=== PATIENT | male | born 1985 | race Two or more races ===

== ENCOUNTER 2017-08-20 10:23 | Emergency (ER) | payer OTHER ==
[~2017-08-20] VITALS: Ht 167.6 cm; Wt 68.0 kg
--- NOTE | 2017-08-20 10:38 | Emergency Room Report ---
History of Present Illness General Chief Complaint: Medical Clearance Source: Patient Present Illness HPI He cut his L hand on broken glass earlier today while sifting through trash. Some minimal bleeding. Initially states unknown tetanus. Denies pain. No somatic complaints. R handed. Allergies: Coded Allergies: No Known Allergies (Unverified , 08/20/17) Patient History Past Medical History: see triage record Social History: Reports: alcohol use Social History Narrative in custody Reviewed Nursing Documentation: PMH: Agreed, PSxH: Agreed Nursing Documentation-PMH Past Medical History: No History, Except For Hx Hypertension: Yes Review of Systems All Other Systems: negative except mentioned in HPI Physical Exam Vital Signs Date Time Temp Pulse Resp B/P (MAP) Pulse Ox O2 Delivery O2 Flow Rate FiO2 08/20/17 10:14 98.1 120 16 143/102 99 Room Air Sp02 EP Interpretation: reviewed, normal General Appearance: well appearing, no apparent distress Head: normocephalic, atraumatic Eyes: bilateral eye PERRL, bilateral eye Scleral Injection ENT: hearing grossly normal, normal voice Neck: full range of motion, supple Respiratory: lungs clear, no respiratory distress, speaking full sentences Cardiovascular #1: regular rate, rhythm Cardiovascular #2: 2+ radial (L) - cap fill normal Gastrointestinal: normal inspection, scaphoid Musculoskeletal: back normal, digits/nails normal, gait/station normal, normal range of motion, other - tendon not involved Neurologic: alert, motor strength/tone normal, sensory intact, normal gait Psychiatric: mood/affect normal Skin: laceration - superficial base of L thumb, < 1 cm Medical Decision Making Diagnostic Impression: Primary Impression: Superficial laceration left thumb ER Course Patient presents with superficial laceration L thumb. No sutures indicated. No foreign body present. Patient refused tetanus. Patient stable for outpatient observation and treatment. Last Vital Signs Date Time Temp Pulse Resp B/P (MAP) Pulse Ox O2 Delivery O2 Flow Rate FiO2 08/20/17 11:13 98.1 101 16 144/99 99 Room Air Status: improved Disposition: D/C TO LAW ENFORCEMENT IN [facility]UST Condition: Improved Scripts Bacitracin (Bacitracin) 28.4 Gm Oint...g. 1 APPLIC TOPIC BID, #10 GM Prov: Minh Jhaveri M.D. 08/20/17 Minh Jhaveri M.D. Aug 20, 2017 10:38
[2017-08-20] MEDS ORDERED: BACITRACIN15 GM TOPIC (10:41)
[2017-08-20] MEDS ORDERED: Bacitracin Oint UD TOPIC ONE (10:45)
[2017-08-20] MEDS: Tetanus/Diptheria/Pertussis Vaccine 0.5ml Syr IM ONE ×2 (10:53→11:02)
[2017-08-20 11:09] VITALS: BP 144/99
[2017-08-20 11:13] VITALS: BP 144/99
== END 2017-08-20 11:17 ==
LOC: EDBD 10:23 → EMR 10:43
DX: S61.012A Laceration without foreign body of left thumb without damage to nail, initial encounter (principal); W25.XXXA Contact with sharp glass, initial encounter; Y92.89 Other specified places as the place of occurrence of the external cause; Z23 Encounter for immunization; I10 Essential (primary) hypertension
CPT/HCPCS: 90471; 90715; 99283